=== PATIENT | male | born 1985 | race Caucasian/White ===

== ENCOUNTER 2020-01-16 14:29 | Inpatient (IN) | payer OTHER ==
[~2020-01-16] VITALS: Ht 177.8 cm; Wt 112.0 kg
[2020-01-16 15:05] LABS: BASOPHILS ABSOLUTE AUTO 0.09 K/mm3 (0.00-0.23); BASOPHILS PERCENT AUTO 1 % (0-2); EOSINOPHILS ABSOLUTE AUTO 0.06 K/mm3 (0.00-0.68); EOSINOPHILS PERCENT AUTO 1 % (0-6); Hematocrit 32.8 % (37.0-53.0); Hemoglobin 11.4 g/dL (13.5-17.5); IMMATURE GRAN ABSOLUTE AUTO 0.07 K/mm3 (0.00-0.10); IMMATURE GRAN PERCENT AUTO 1 % (0-1); LYMPHOCYTES ABSOLUTE AUTO 1.17 K/mm3 (0.84-5.20); LYMPHOCYTES PERCENT AUTO 11 % (21-46); MONOCYTES ABSOLUTE AUTO 0.85 K/mm3 (0.16-1.47); MONOCYTES PERCENT AUTO 8 % (4-13); Mean Corpuscular HGB 36.9 pg (26.0-34.0); Mean Corpuscular HGB Conc 34.8 g/dL (31.5-36.5); Mean Corpuscular Volume 106 fL (80-100); Mean Platelet Volume 9.5 fL (9.1-12.4); NEUTROPHILS ABSOLUTE AUTO 8.73 K/mm3 (1.96-9.15); NEUTROPHILS PERCENT AUTO 80 % (41-73); Platelet Count 129 K/mm3 (150-400); RDW Standard Deviation 58.1 fL (35.1-46.3); Red Blood Cell Count 3.09 M/mm3 (4.30-5.90); White Blood Cell Count 10.97 K/mm3 (4.00-11.30)
[2020-01-16 15:21] LABS: Alanine Aminotransfer (ALT/SGP 43 U/L (12-78); Albumin, Blood 2.6 g/dL (3.4-5.0); Albumin/Globulin Ratio 0.5 (0.8-1.8); Alk Phos 185 U/L (50-136); Anion Gap 7 mmol/L (6-16); Aspartate Aminotrans (AST/SGOT 233 U/L (12-37); Bilirubin, Total 7.5 mg/dL (0.1-1.0); Blood Urea Nitrogen 2 mg/dL (8-24); Bun/Creatinine Ratio 4.3 (12.0-20.0); CO2, Blood 36 mmol/L (21-32); Calcium, Blood 9.1 mg/dL (8.5-10.1); Chloride, Blood 91 mmol/L (98-108); Creatinine, Blood 0.47 mg/dL (0.60-1.20); Globulin, Blood 5.5 g/dL (2.2-4.0); Glomerular Filtration Rate >60 (60-); Glucose, Blood 128 mg/dL (70-99); Sodium, Blood 134 mmol/L (136-145); Total Protein, Blood 8.1 g/dL (6.4-8.2)
[2020-01-16 16:09] LABS: International Normalized Ratio 1.45; Prothrombin Time Results 15.2 Sec (9.7-11.5)
[2020-01-16 16:23] LABS: Source, Urine Clean Catch
[2020-01-16 16:27] LABS: Blood, Urine Neg (Neg); Glucose Qualitative, Urine Neg (Neg); Ketones, Urine 2+ (Neg); Leukocyte Esterase, Urine 1+ (Neg); Nitrite, Urine Pos (Neg); Protein, Urine 1+ (Neg); Urobilinogen, Urine 4+ (Normal)
[2020-01-16 16:33] LABS: Appearance, Urine Clear (Clear); Bilirubin, Urine 3+ (Neg); Color, Urine Amber (P-Yellow)
[2020-01-16 16:34] LABS: Red Blood Cells, Urine 0-2 /hpf (0-2)
[2020-01-16 16:35] LABS: Bacteria Few /hpf; Squamous Epithelial Cells Few /hpf (Few)
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
[2020-01-17 05:26] LABS: Alanine Aminotransfer (ALT/SGP 31 U/L (12-78); Albumin, Blood 2.2 g/dL (3.4-5.0); Albumin/Globulin Ratio 0.5 (0.8-1.8); Alk Phos 144 U/L (50-136); Anion Gap 4 mmol/L (6-16); Aspartate Aminotrans (AST/SGOT 166 U/L (12-37); Bilirubin, Total 8.3 mg/dL (0.1-1.0); Blood Urea Nitrogen 2 mg/dL (8-24); Bun/Creatinine Ratio 4.2 (12.0-20.0); CO2, Blood 33 mmol/L (21-32); Chloride, Blood 99 mmol/L (98-108); Creatinine, Blood 0.48 mg/dL (0.60-1.20); Globulin, Blood 4.7 g/dL (2.2-4.0); Glomerular Filtration Rate >60 (60-); Glucose, Blood 126 mg/dL (70-99); Magnesium, Blood 2.1 mg/dL (1.6-2.4); Potassium, Blood 3.2 mmol/L (3.5-5.5); Sodium, Blood 136 mmol/L (136-145); Total Protein, Blood 6.9 g/dL (6.4-8.2)
--- NOTE | 2020-01-17 12:18 | NUR ---
echocardiogram complete
--- NOTE | 2020-01-17 17:06 | NUR ---
SHIFT SUMMARY PATIENT DENIES PAIN, EXCEPT WHEN FEET ARE TOUCHED. PATIENT HAD MILD EPISODE OF NAUSEA AFTER TAKING VITAMINS THIS AM. DENIES NAUSEA THE REST OF SHIFT. ATE 100% OF LUNCH. CIWA'S BETWEEN 4 AND 6 THIS SHIFT. ECHO COMPLETED. VENOUS DOPPLER COMPLETED. PATIENT NAPPING MOST OF SHIFT. UP SBA TO BR. AT BEDSIDE.
[2020-01-18 04:51] LABS: Alanine Aminotransfer (ALT/SGP 26 U/L (12-78); Albumin, Blood 2.3 g/dL (3.4-5.0); Albumin/Globulin Ratio 0.5 (0.8-1.8); Alk Phos 134 U/L (50-136); Anion Gap 5 mmol/L (6-16); Aspartate Aminotrans (AST/SGOT 144 U/L (12-37); Bilirubin, Total 8.5 mg/dL (0.1-1.0); Blood Urea Nitrogen 3 mg/dL (8-24); Bun/Creatinine Ratio 5.6 (12.0-20.0); CO2, Blood 31 mmol/L (21-32); Calcium, Blood 8.5 mg/dL (8.5-10.1); Chloride, Blood 101 mmol/L (98-108); Creatinine, Blood 0.54 mg/dL (0.60-1.20); Globulin, Blood 4.7 g/dL (2.2-4.0); Glomerular Filtration Rate >60 (60-); Glucose, Blood 98 mg/dL (70-99); Potassium, Blood 3.9 mmol/L (3.5-5.5); Sodium, Blood 137 mmol/L (136-145)
--- NOTE | 2020-01-18 06:09 | NUR ---
SHIFT SUMMARY PT APPEARS RECEPTIVE THIS EVENING TO REMAINING IN HOSPITAL. CIWA SCORES 7-11 THIS EVENING. MEDICATED X 2 WITH 2 MG ATIVAN. PT'S RESPIRATIONS ELEVATED AND BECOME MORE ELEVATED WHEN FEELING ANXIOUS FROM WITHDRAWALS. REPORTS THAT PT HAS INCREASED RESPIRATIONS LIKE THIS AT HOME WELL. PT REPORTED THAT HE WAS HAVING HALLUCINATIONS THIS EVENING. STATING THAT HE COULD SEE A FRIEND STANDING IN THE CORNER AND THOUGHT THAT HIS DAUGHTER WAS SITTING NEXT TO HIM. PT'S URINE AND STOOL ORANGE. EYES ARE JAUNDICED. PT REPORT'S THAT ABD MORE DISTENDED THAN USUAL. BLE'S WITH 2-3+ EDEMA. CALLED AND WAS UPDATED. PT REMAINS TACHYCARDIC WITH HR IN THE 100'S-110'S. RESPIRATIONS IN THE 20'S. BLOOD PRESSURE STABLE. AFEBRILE. WILL CONTINUE TO MONITOR AND REPORT TO DAY RN.
[2020-01-18 08:53] LABS: Hematocrit 29.8 % (37.0-53.0); Hemoglobin 10.1 g/dL (13.5-17.5); Mean Corpuscular HGB 37.3 pg (26.0-34.0); Mean Corpuscular HGB Conc 33.9 g/dL (31.5-36.5); Mean Corpuscular Volume 110 fL (80-100); Mean Platelet Volume 9.6 fL (9.1-12.4); Platelet Count 104 K/mm3 (150-400); RDW Coefficient Variation 15.5 % (11.7-14.2); RDW Standard Deviation 61.8 fL (35.1-46.3); Red Blood Cell Count 2.71 M/mm3 (4.30-5.90); White Blood Cell Count 8.94 K/mm3 (4.00-11.30)
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
--- NOTE | 2020-01-18 20:44 | NUR ---
ASSUMED CARE. AOX3, LAYING DOWN IN BED, STATES NORMAL ACHES AND PAINS, TOLERABLE AT THIS TIME. MINOR TREMORS BUT IMPROVING. NO HEADACHE, HULLUCINATIONS. DOES FEEL ANXIOUS. DENIES ANY NAUSEA. EDEMA NOTED TO BLE, ABD DISTENDED, FIRM. TOLERATING DIET AND FLUIDS. IV FLUSHED. LUNG SOUNDS CLEAR AND HR GOOD. WILL GIVE TRAZADONE FOR SLEEP. ENCOURAGE TO CALL IF HE NEEDS ANYTHING. ALL 4 RAILS ARE UP, HE ASKED FOR US TO LEAVE THEM UP HE LIKES TO THROW HIS LEG OVER THEM. HE IS ABLE TO PUT THEM DOWN IF NEEDS TO. CALL LIGHT IN REACH.
--- NOTE | 2020-01-19 00:35 | NUR ---
GUERO AWAKE, GOT UP TO USE THE BATHROOM, DENIED ANY DISCOMFORT. ABULATION WAS STEADY, NO SIGNS OF TREMORS AT THIS TIME, DENIED ANY ANXIOUSNESS, OR OTHER SIGNS OF CIWA. WILL CONTINUE TO MONITOR.
--- NOTE | 2020-01-19 05:47 | NUR ---
SHIFT SUMMARY: AOX3, LABILE, COOPERATIVE, AND QUIT. RECEIVED TRAZADONE FOR BEDTIME. SLEPT 90% OF THE SHIFT. CONTINUOUS BIOX ON SATS REMAINED IN THE 90'S, NO OXYGEN WAS ON. STILL TACHYCARDIC IN THE 110'S ENTIRE SHIFT. DENIED ANY CHEST PAIN OR PALPITATIONS. JAUDICE SKIN. URINATING WELL. CIWA 0-3 ENTIRE SHIFT, WITH MILD TREMORS AND ANXIETY. DID NOT USE ATIVAN THIS SHIFT. GOT UP THIS AM AND TOOK SHOWER ON OWN. NO FURTHER ACUTE CHANGES TO REPORT.
[2020-01-19 08:47] LABS: Alanine Aminotransfer (ALT/SGP 25 U/L (12-78); Albumin, Blood 2.1 g/dL (3.4-5.0); Albumin/Globulin Ratio 0.5 (0.8-1.8); Alk Phos 116 U/L (50-136); Anion Gap 5 mmol/L (6-16); Aspartate Aminotrans (AST/SGOT 128 U/L (12-37); Bilirubin, Total 7.3 mg/dL (0.1-1.0); Blood Urea Nitrogen 4 mg/dL (8-24); Bun/Creatinine Ratio 8.3 (12.0-20.0); CO2, Blood 30 mmol/L (21-32); Calcium, Blood 8.5 mg/dL (8.5-10.1); Chloride, Blood 104 mmol/L (98-108); Creatinine, Blood 0.48 mg/dL (0.60-1.20); Globulin, Blood 4.6 g/dL (2.2-4.0); Glomerular Filtration Rate >60 (60-); Glucose, Blood 94 mg/dL (70-99); Potassium, Blood 3.6 mmol/L (3.5-5.5); Sodium, Blood 139 mmol/L (136-145); Total Protein, Blood 6.7 g/dL (6.4-8.2)
[2020-01-19 10:10] LABS: HBSAG SCREEN Negative (Negative); HEP A AB, IGM Negative (Negative); HEP B CORE AB, TOT Negative (Negative); HEP C VIRUS AB 0.1 (0.0-0.9)
[2020-01-19] MEDS ORDERED: NICO21TP TOP (11:23)
[2020-01-19] MEDS ORDERED: B-1100 M1 PO (11:24)
[2020-01-19] MEDS ORDERED: TRAZ50 PO (11:26)
--- NOTE | 2020-01-19 11:45 | NUR ---
PT AxOx4. COOPERATIVE WITH CARE. DR SOLORZANO DISCHARGING TO HOME. REQUESTS PT ESTABLISH CARE WITH HER PCP. NEW PT PACKET AND FOLLOW UP INFO GIVEN. PT DENIES PAIN. REPORTS MILD ANXIETY."JUST NEEDS TO GET HOME TO TAKE CARE OF SOME STUFF" LAST CIWA SCORE:2. DISCUSSED DISCHARGE INSTRUCTIONS, INCLUDING NEW MEDICATIONS. ALL QUESTIONS ANSWERED. VITAL SIGNS REVIEWED. PT ESCORTED OUT ON FOOT WITH VOLUNTEER.
== END 2020-01-19 11:46 | disposition home or self-care (01) | DRG 433 ==
LOC: ER 14:29 → MEDS 17:46 → ER 18:43 → MEDS 19:03
PROVIDERS: Emergency Medicine; Hospitalist; Physician Assistant; ADMIT Internal Medicine
DX: K70.10 Alcoholic hepatitis without ascites (principal); F10.231 Alcohol dependence with withdrawal delirium; D68.9 Coagulation defect, unspecified; E87.1 Hypo-osmolality and hyponatremia; E87.2 Acidosis; D53.9 Nutritional anemia, unspecified; E87.6 Hypokalemia; G47.00 Insomnia, unspecified; E80.6 Other disorders of bilirubin metabolism; F17.210 Nicotine dependence, cigarettes, uncomplicated
CPT/HCPCS: 36415; 71045; 76705; 80053; 81001; 82140; 82607; 82746; 83605; 83690; 83735; 83880; 84100; 84443; 85025; 85027; 85610; 85730; 86704; 86708; 86803; 87040; 87086; 87340; 93005; 93010; 93306; 93970; 94762; 96365; 96367; 96375; 99285-25; A9270; A9270-GY; J0696; J2060; J3411; J3475; J7030; J7042; Q2038

== ENCOUNTER → 2020-01-16 | Outpatient (CLI) | payer SELFPAY ==
[~2020-01-16] MED LIST: B-1100 M1 PO; NICO21TP TOP; TRAZ50 PO
[2020-01-16 13:29] LABS: BASOPHILS ABSOLUTE AUTO 0.09 K/mm3 (0.00-0.23); BASOPHILS PERCENT AUTO 1 % (0-2); EOSINOPHILS ABSOLUTE AUTO 0.08 K/mm3 (0.00-0.68); EOSINOPHILS PERCENT AUTO 1 % (0-6); Hematocrit 31.2 % (37.0-53.0); Hemoglobin 11.2 g/dL (13.5-17.5); IMMATURE GRAN ABSOLUTE AUTO 0.07 K/mm3 (0.00-0.10); IMMATURE GRAN PERCENT AUTO 1 % (0-1); LYMPHOCYTES ABSOLUTE AUTO 0.95 K/mm3 (0.84-5.20); LYMPHOCYTES PERCENT AUTO 9 % (21-46); MONOCYTES ABSOLUTE AUTO 0.74 K/mm3 (0.16-1.47); MONOCYTES PERCENT AUTO 7 % (4-13); Mean Corpuscular HGB 37.2 pg (26.0-34.0); Mean Corpuscular HGB Conc 35.9 g/dL (31.5-36.5); Mean Corpuscular Volume 104 fL (80-100); Mean Platelet Volume 9.5 fL (9.1-12.4); NEUTROPHILS ABSOLUTE AUTO 8.75 K/mm3 (1.96-9.15); NEUTROPHILS PERCENT AUTO 82 % (41-73); Platelet Count 125 K/mm3 (150-400); RDW Coefficient Variation 14.7 % (11.7-14.2); RDW Standard Deviation 55.7 fL (35.1-46.3); Red Blood Cell Count 3.01 M/mm3 (4.30-5.90); White Blood Cell Count 10.68 K/mm3 (4.00-11.30)
[2020-01-16 13:33] LABS: Alanine Aminotransfer (ALT/SGP 47 U/L (12-78); Albumin, Blood 2.6 g/dL (3.4-5.0); Albumin/Globulin Ratio 0.4 (0.8-1.8); Alk Phos 181 U/L (40-126); Anion Gap 9 mmol/L (6-16); Aspartate Aminotrans (AST/SGOT 231 U/L (12-37); Bilirubin, Direct 4.3 mg/dL (0.0-0.3); Bilirubin, Total 6.7 mg/dL (0.1-1.0); Blood Urea Nitrogen 2 mg/dL (8-24); Bun/Creatinine Ratio 3.1 (12.0-20.0); CO2, Blood 36 mmol/L (21-32); Calcium, Blood 8.9 mg/dL (8.5-10.1); Chloride, Blood 90 mmol/L (98-108); Creatinine, Blood 0.65 mg/dL (0.60-1.20); Globulin, Blood 5.8 g/dL (2.2-4.0); Glomerular Filtration Rate >60 (60-); Glucose, Blood 138 mg/dL (70-99); Potassium, Blood 2.8 mmol/L (3.5-5.5); Sodium, Blood 135 mmol/L (136-145); Total Protein, Blood 8.4 g/dL (6.4-8.2)
[2020-01-16 14:13] LABS: International Normalized Ratio 1.39; Prothrombin Time Results 14.6 Sec (9.7-11.5)
[2020-01-18 10:09] LABS: HBSAG SCREEN Negative (Negative); HEP A AB, IGM Negative (Negative); HEP B CORE AB, IGM Negative (Negative); HEP C VIRUS AB 0.1 (0.0-0.9)
== END | disposition home or self-care (01) ==
LOC: LAB SHORT 13:06 → LAB EV 13:06
PROVIDERS: Chiropractor
DX: R17 Unspecified jaundice (principal); R10.11 Right upper quadrant pain
CPT/HCPCS: 80053; 80074; 82248; 83690; 83880; 85025; 85610; 85730

== ENCOUNTER 2020-07-10 23:31 | Emergency (ER) | payer OTHER ==
[~2020-07-10] VITALS: Ht 177.8 cm; Wt 93.0 kg
[2020-07-11 00:20] LABS: BASOPHILS ABSOLUTE AUTO 0.11 K/mm3 (0.00-0.23); BASOPHILS PERCENT AUTO 1 % (0-2); EOSINOPHILS ABSOLUTE AUTO 0.27 K/mm3 (0.00-0.68); EOSINOPHILS PERCENT AUTO 3 % (0-6); Hematocrit 32.9 % (37.0-53.0); Hemoglobin 11.2 g/dL (13.5-17.5); IMMATURE GRAN ABSOLUTE AUTO 0.02 K/mm3 (0.00-0.10); IMMATURE GRAN PERCENT AUTO 0 % (0-1); LYMPHOCYTES PERCENT AUTO 17 % (21-46); MONOCYTES ABSOLUTE AUTO 0.78 K/mm3 (0.16-1.47); MONOCYTES PERCENT AUTO 9 % (4-13); Mean Corpuscular HGB 33.7 pg (26.0-34.0); Mean Corpuscular Volume 99 fL (80-100); Mean Platelet Volume 9.9 fL (9.1-12.4); NEUTROPHILS ABSOLUTE AUTO 6.14 K/mm3 (1.96-9.15); NEUTROPHILS PERCENT AUTO 70 % (41-73); Platelet Count 82 K/mm3 (150-400); RDW Coefficient Variation 13.6 % (11.7-14.2); RDW Standard Deviation 48.8 fL (35.1-46.3); Red Blood Cell Count 3.32 M/mm3 (4.30-5.90); White Blood Cell Count 8.82 K/mm3 (4.00-11.30)
[2020-07-11 00:34] LABS: International Normalized Ratio 1.83; Prothrombin Time Results 18.9 Sec (9.7-11.5)
[2020-07-11 00:37] LABS: Alanine Aminotransfer (ALT/SGP 51 U/L (12-78); Albumin, Blood 3.1 g/dL (3.4-5.0); Albumin/Globulin Ratio 0.5 (0.8-1.8); Alk Phos 136 U/L (50-136); Anion Gap 9 mmol/L (6-16); Aspartate Aminotrans (AST/SGOT 155 U/L (12-37); Bilirubin, Total 7.2 mg/dL (0.1-1.0); Blood Urea Nitrogen 6 mg/dL (8-24); Bun/Creatinine Ratio 9.3 (12.0-20.0); CO2, Blood 30 mmol/L (21-32); Calcium, Blood 9.1 mg/dL (8.5-10.1); Chloride, Blood 96 mmol/L (98-108); Creatinine, Blood 0.65 mg/dL (0.60-1.20); Ethanol (Alcohol), Blood, Med 52 mg/dL; Globulin, Blood 6.2 g/dL (2.2-4.0); Glomerular Filtration Rate >60 (60-); Glucose, Blood 129 mg/dL (70-99); Potassium, Blood 3.2 mmol/L (3.5-5.5); Sodium, Blood 135 mmol/L (136-145); Total Protein, Blood 9.3 g/dL (6.4-8.2)
[2020-07-11 00:55] LABS: Source, Urine Voided
[2020-07-11 00:58] LABS: Appearance, Urine Clear (Clear); Blood, Urine 2+ (Neg); Color, Urine Amber (P-Yellow); Glucose Qualitative, Urine Neg (Neg); Ketones, Urine 2+ (Neg); Leukocyte Esterase, Urine 1+ (Neg); Nitrite, Urine Pos (Neg); Protein, Urine 2+ (Neg); Specific Gravity, Urine 1.015 (1.003-1.022); Urobilinogen, Urine 4+ (Normal); pH, Urine 6.5 (5.0-8.0)
[2020-07-11 00:59] LABS: Bilirubin, Urine 3+ (Neg)
[2020-07-11 01:05] LABS: Bacteria Many /hpf; Hyaline Casts 0-2 /lpf (0-2); Mucus Mod (0-Heavy); Red Blood Cells, Urine 0-2 /hpf (0-2); Squamous Epithelial Cells Few /hpf (Few)
[2020-07-11 01:10] LABS: U Amphetamine Screen Not Detected; U Barbituate Screen Not Detected; U Benzodiazapine Screen Not Detected; U Buprenorphine Screen Not Detected; U Cannabinoids Screen Not Detected; U Cocaine Screen Not Detected; U Methadone Screen Not Detected; U Methamphetamine Screen Not Detected; U Opiates Screen Not Detected; U Oxycodone Screen Not Detected; U Phencyclidine Screen Not Detected; U Propoxyphene Screen Not Detected
[2020-07-11] MEDS ORDERED: Zofran4 MG PO (01:33)
[2020-07-11] MEDS ORDERED: CHLO25 PO (01:33)
[2020-07-11] MEDS ORDERED: Triamcinolone A15 GM TOP (01:33)
== END 2020-07-11 02:10 | disposition home or self-care (01) ==
LOC: ER 23:31
PROVIDERS: Emergency Medicine; Physician Assistant
DX: K70.10 Alcoholic hepatitis without ascites (principal); F10.239 Alcohol dependence with withdrawal, unspecified; R21 Rash and other nonspecific skin eruption; F17.210 Nicotine dependence, cigarettes, uncomplicated; Z79.899 Other long term (current) drug therapy
CPT/HCPCS: 80053; 81001; 82140; 85025; 85610; 85730; 87086; 99284; A9270; G0480

== ENCOUNTER 2020-12-18 17:53 | Observation (INO) | payer OTHER ==
[~2020-12-18] VITALS: Ht 177.8 cm; Wt 109.0 kg
[~2020-12-18 17:53] MED LIST changes: -FURO40 PO; -POTASSIUM CL ER PO
[2020-12-18 21:57] LABS: Magnesium, Blood 1.3 mg/dL (1.6-2.4); Phosphorus, Blood 2.4 mg/dL (2.5-4.9)
[2020-12-18 22:14] LABS: Source, Urine Clean Catch
[2020-12-18 22:20] LABS: Blood, Urine 1+ (Neg); Glucose Qualitative, Urine Neg (Neg); Ketones, Urine 2+ (Neg); Leukocyte Esterase, Urine 1+ (Neg); Nitrite, Urine Pos (Neg); Protein, Urine 1+ (Neg); Urobilinogen, Urine 4+ (Normal)
[2020-12-18 22:30] LABS: Appearance, Urine Hazy (Clear); Bilirubin, Urine 3+ (Neg); Color, Urine Amber (P-Yellow)
[2020-12-18 22:31] LABS: Bacteria Rare /hpf; Red Blood Cells, Urine 0-2 /hpf (0-2); Squamous Epithelial Cells Rare /hpf (Few); White Blood Cells, Urine 0-2 /hpf (0-5)
[2020-12-18] MEDS ORDERED: FURO40 PO (23:07)
[2020-12-18] MEDS ORDERED: POTASSIUM CL ER PO (23:07)
[2020-12-18] MEDS ORDERED: B-1100 M1 PO (23:08)
[2020-12-19 03:39] LABS: BASOPHILS PERCENT AUTO 2 % (0-2); EOSINOPHILS ABSOLUTE AUTO 0.18 K/mm3 (0.00-0.68); EOSINOPHILS PERCENT AUTO 3 % (0-6); Hemoglobin 7.3 g/dL (13.5-17.5); IMMATURE GRAN ABSOLUTE AUTO 0.07 K/mm3 (0.00-0.10); IMMATURE GRAN PERCENT AUTO 1 % (0-1); LYMPHOCYTES ABSOLUTE AUTO 1.01 K/mm3 (0.84-5.20); LYMPHOCYTES PERCENT AUTO 17 % (21-46); MONOCYTES ABSOLUTE AUTO 0.48 K/mm3 (0.16-1.47); MONOCYTES PERCENT AUTO 8 % (4-13); Mean Corpuscular HGB 37.1 pg (26.0-34.0); Mean Corpuscular HGB Conc 33.2 g/dL (31.5-36.5); Mean Corpuscular Volume 112 fL (80-100); Mean Platelet Volume 8.8 fL (9.1-12.4); NEUTROPHILS ABSOLUTE AUTO 4.16 K/mm3 (1.96-9.15); NEUTROPHILS PERCENT AUTO 69 % (41-73); Platelet Count 85 K/mm3 (150-400); RDW Coefficient Variation 15.5 % (11.7-14.2); RDW Standard Deviation 60.8 fL (35.1-46.3); Red Blood Cell Count 1.97 M/mm3 (4.30-5.90)
[2020-12-19 03:56] LABS: Alanine Aminotransfer (ALT/SGP 28 U/L (12-78); Albumin, Blood 2.5 g/dL (3.4-5.0); Albumin/Globulin Ratio 0.5 (0.8-1.8); Alk Phos 115 U/L (50-136); Anion Gap 5 mmol/L (6-16); Aspartate Aminotrans (AST/SGOT 102 U/L (12-37); Blood Urea Nitrogen 8 mg/dL (8-24); Bun/Creatinine Ratio 12.7 (12.0-20.0); CO2, Blood 30 mmol/L (21-32); Calcium, Blood 8.7 mg/dL (8.5-10.1); Chloride, Blood 98 mmol/L (98-108); Creatinine, Blood 0.63 mg/dL (0.60-1.20); Globulin, Blood 4.9 g/dL (2.2-4.0); Glomerular Filtration Rate >60 (60-); Glucose, Blood 133 mg/dL (70-99); Potassium, Blood 3.5 mmol/L (3.5-5.5); Sodium, Blood 133 mmol/L (136-145); Total Protein, Blood 7.4 g/dL (6.4-8.2)
[2020-12-19 04:04] LABS: SARS-Cov-2 (COVID-19) PCR, MMC NEGATIVE (NEGATIVE)
[2020-12-19 10:53] LABS: Hematocrit 24.3 % (37.0-53.0)
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
--- NOTE | 2020-12-19 11:56 | NUR ---
1140- IV DC'D, PRESURE DRESSING APPLIED. PT AMBULATED OUTSIDE RN SBA, UNSTEADY, GOOD STRENGTH. WENT OUTSIDE INTO ED PARKING LOT AND SMOKING A CIGARETTE. NOTIFIED GUARDS AT THE ENTERANCE OF SITUATION TO BE AWARE. PT HAD BELONGINGS, INCLUDING CELL PHONE, TENNIS SHOES AND SOCKS AND A SET OF KEYS.
== END 2020-12-19 11:43 | disposition left against medical advice (07) ==
LOC: ER 17:53 → MEDS 17:54
PROVIDERS: Emergency Medicine; Physician Assistant; ADMIT Internal Medicine
DX: K70.10 Alcoholic hepatitis without ascites (principal); F10.10 Alcohol abuse, uncomplicated; D64.9 Anemia, unspecified; D68.9 Coagulation defect, unspecified; D69.6 Thrombocytopenia, unspecified; F17.210 Nicotine dependence, cigarettes, uncomplicated; Z20.822 Contact with and (suspected) exposure to COVID-19; Z53.29 Procedure and treatment not carried out because of patient's decision for other reasons
CPT/HCPCS: 36415; 74177; 76705; 80053; 81001; 82140; 83735; 84100; 85014; 85018; 85025; 86850; 86900; 86901; 87086; 93005; 93010; 96365-59; 96367; 96375; 96376; 99285-25; G0378; J2060; J3411; J3475; J7042; J7512; Q9967; U0004

== ENCOUNTER → 2020-12-18 | Outpatient (CLI) | payer OTHER ==
[~2020-12-18] MED LIST changes: +CHLO25 PO; +FURO40 PO; +POTASSIUM CL ER PO; +Triamcinolone A15 GM TOP; +Zofran4 MG PO
[2020-12-18 17:14] LABS: BASOPHILS ABSOLUTE AUTO 0.11 K/mm3 (0.00-0.23); BASOPHILS PERCENT AUTO 2 % (0-2); EOSINOPHILS ABSOLUTE AUTO 0.13 K/mm3 (0.00-0.68); EOSINOPHILS PERCENT AUTO 2 % (0-6); Hematocrit 22.6 % (37.0-53.0); Hemoglobin 7.6 g/dL (13.5-17.5); Mean Corpuscular HGB 37.4 pg (26.0-34.0); Mean Corpuscular HGB Conc 33.6 g/dL (31.5-36.5); Mean Corpuscular Volume 111 fL (80-100); Mean Platelet Volume 8.8 fL (9.1-12.4); Platelet Count 72 K/mm3 (150-400); RDW Coefficient Variation 15.8 % (11.7-14.2); RDW Standard Deviation 61.9 fL (35.1-46.3); Red Blood Cell Count 2.03 M/mm3 (4.30-5.90); White Blood Cell Count 6.24 K/mm3 (4.00-11.30)
[2020-12-18 17:21] LABS: IMMATURE GRAN ABSOLUTE AUTO 0.07 K/mm3 (0.00-0.10); IMMATURE GRAN PERCENT AUTO 1 % (0-1); LYMPHOCYTES ABSOLUTE AUTO 0.92 K/mm3 (0.84-5.20); LYMPHOCYTES PERCENT AUTO 15 % (21-46); MONOCYTES ABSOLUTE AUTO 0.48 K/mm3 (0.16-1.47); MONOCYTES PERCENT AUTO 8 % (4-13); NEUTROPHILS ABSOLUTE AUTO 4.53 K/mm3 (1.96-9.15); NEUTROPHILS PERCENT AUTO 73 % (41-73)
[2020-12-18 17:25] LABS: Alanine Aminotransfer (ALT/SGP 27 U/L (12-78); Albumin, Blood 2.7 g/dL (3.4-5.0); Albumin/Globulin Ratio 0.5 (0.8-1.8); Alk Phos 135 U/L (40-126); Anion Gap 7 mmol/L (6-16); Aspartate Aminotrans (AST/SGOT 110 U/L (12-37); Bilirubin, Direct 5.9 mg/dL (0.0-0.3); Bilirubin, Indirect 7.1 mg/dL (0.1-0.7); Bilirubin, Total 13.1 mg/dL (0.1-1.0); Blood Urea Nitrogen 8 mg/dL (8-24); Bun/Creatinine Ratio 11.4 (12.0-20.0); CO2, Blood 30 mmol/L (21-32); Calcium, Blood 8.6 mg/dL (8.5-10.1); Chloride, Blood 97 mmol/L (98-108); Globulin, Blood 5.3 g/dL (2.2-4.0); Glomerular Filtration Rate >60 (60-); Glucose, Blood 115 mg/dL (70-99); Potassium, Blood 3.6 mmol/L (3.5-5.5); Sodium, Blood 134 mmol/L (136-145)
[2020-12-18 17:44] LABS: International Normalized Ratio 2.04; Prothrombin Time Results 21.2 Sec (9.7-11.5)
== END ==
LOC: LAB SHORT 16:57 → LAB 16:57
PROVIDERS: Physician Assistant
DX: K70.31 Alcoholic cirrhosis of liver with ascites (principal)
CPT/HCPCS: 80053; 82140; 82247; 82248; 83690; 83880; 85025; 85610

== ENCOUNTER 2021-03-29 09:13 | Day surgery (SDC) | payer OTHER ==
[~2021-03-29] VITALS: Ht 177.8 cm; Wt 105.5 kg
[~2021-03-29 09:13] MED LIST changes: +FURO40 PO; +POTASSIUM CL ER PO
[2021-03-29] MEDS ORDERED: MULVITA PO (09:43)
--- NOTE | 2021-03-29 09:45 | NUR ---
Ambulatory in Day Surgery History, Chart, Medications and Allergies reviewed before start of procedure. Lungs clear T/O to Auscultation. Patient confirms NPO status and agrees with scheduled surgery. Pre-Op teaching done. Pt verbalizes understanding. Patient States Post-Procedure ride home has been arranged.
--- NOTE | 2021-03-29 10:31 | NUR ---
03/29/21 1031 Dora Elias History, Chart, Medications and Allergies reviewed before start of procedure.MONITOR INTACT WITH CONTINUOUS PULSE OXIMETRY AND INTERMITTENT BP.O2 VIA N/C INTACT THROUGHOUT SEDATION/PROCEDURE. See Anesthesia record.
--- NOTE | 2021-03-29 12:00 | NUR ---
Patient up to Ambulate independently. Gait steady. Discharge instructions reviewed with patient. Patient verbalizes understanding. Copy given to patient to take home. Discharged via wheelchair to private car for ride home.
== END 2021-03-29 23:26 | disposition home or self-care (01) ==
LOC: ORSCMMR 09:13 → ORD 10:00 → ORSCMMR 10:00
PROVIDERS: Internal Medicine Gastroenterology
PROC: 0DB68ZX Excision of Stomach, Via Natural or Artificial Opening Endoscopic, Diagnostic (ICD-10-PCS; principal; 2021-03-29 10:00)
PROC: 0DBN8ZX Excision of Sigmoid Colon, Via Natural or Artificial Opening Endoscopic, Diagnostic (ICD-10-PCS; principal; 2021-03-29 10:00)
PROC: 0DB98ZX Excision of Duodenum, Via Natural or Artificial Opening Endoscopic, Diagnostic (ICD-10-PCS; principal; 2021-03-29 10:00)
DX: D46.4 Refractory anemia, unspecified (principal); K29.60 Other gastritis without bleeding; K21.9 Gastro-esophageal reflux disease without esophagitis; K63.5 Polyp of colon; K57.30 Diverticulosis of large intestine without perforation or abscess without bleeding; F17.210 Nicotine dependence, cigarettes, uncomplicated
CPT/HCPCS: 88305; 88342; J2250; J2704; J7120

== ENCOUNTER 2022-04-28 22:06 | Observation (INO) | payer OTHER ==
[~2022-04-28] VITALS: Ht 175.3 cm; Wt 104.3 kg
[~2022-04-28 22:06] MED LIST changes: +MULVITA PO
[2022-04-28 22:27] LABS: BASOPHILS PERCENT AUTO 2 % (0-2); EOSINOPHILS ABSOLUTE AUTO 0.17 K/mm3 (0.00-0.68); EOSINOPHILS PERCENT AUTO 3 % (0-6); Hematocrit 28.8 % (37.0-53.0); Hemoglobin 8.3 g/dL (13.5-17.5); IMMATURE GRAN ABSOLUTE AUTO 0.09 K/mm3 (0.00-0.10); IMMATURE GRAN PERCENT AUTO 1 % (0-1); LYMPHOCYTES ABSOLUTE AUTO 1.55 K/mm3 (0.84-5.20); LYMPHOCYTES PERCENT AUTO 23 % (21-46); MONOCYTES ABSOLUTE AUTO 0.61 K/mm3 (0.16-1.47); MONOCYTES PERCENT AUTO 9 % (4-13); Mean Corpuscular HGB 28.6 pg (26.0-34.0); Mean Corpuscular HGB Conc 28.8 g/dL (31.5-36.5); Mean Corpuscular Volume 99 fL (80-100); Mean Platelet Volume 10.3 fL (9.1-12.4); NEUTROPHILS ABSOLUTE AUTO 4.14 K/mm3 (1.96-9.15); NEUTROPHILS PERCENT AUTO 62 % (41-73); NRBC ABSOLUTE 0.02 K/mm3 (0.00-0.02); NRBC Auto 0.3 /100 WBC (0.0-0.2); Platelet Count 91 K/mm3 (150-400); RDW Coefficient Variation 18.2 % (11.7-14.2); RDW Standard Deviation 64.4 fL (35.1-46.3); White Blood Cell Count 6.66 K/mm3 (4.00-11.30)
--- NOTE | 2022-04-29 01:14 | NUR ---
THIS RN COVERING LUNCH FOR ANOTHER RN; WITH PT IN DISTRESS. GENIE CALL TO GABY BLISS RN IN ED; WILL CALL FOR REPORT SOON DISTRESSED PT STABILIZES OR PRIMARY RN COMES BACK FROM LUNCH.
--- NOTE | 2022-04-29 02:13 | NUR ---
PT ARRIVED TO UNIT AT 0135. TRANSFERRED. FAMILY ARRIVED. PT AT 0200 WITH FAMILY AT BEDSIDE.
--- NOTE | 2022-04-29 03:50 | NUR ---
LEVERMAN CALLED. ME OKAY TO RELEASE BODY TO ANGIE AND TO NOTIFY IRRIGATION FLUME LAYER THAT THERE IS A ME HOLD PLACED D/T PT'S YOUNG AGE.
--- NOTE | 2022-04-29 04:15 | NUR ---
PER FATHER WHO IS AN NETWORK PLANNER, STATES SON WOULD NOT WANT TO BE A DONOR AND IMMEDIATE FAMILY SUPPORTS AND HONORS HIS WISHES. DONOR LINE NOTIFIED AND THE PROCESS COMPLETED. DONOR AGENCY HAS CLOSED HIS CASE.
== END 2022-04-29 02:00 ==
LOC: ER 22:06 → ERHOLD 22:07 → MEDS 04-29 01:35
PROVIDERS: Emergency Medicine; ADMIT Internal Medicine
DX: I61.8 Other nontraumatic intracerebral hemorrhage (principal); R40.4 Transient alteration of awareness; D64.9 Anemia, unspecified; D69.6 Thrombocytopenia, unspecified; F17.210 Nicotine dependence, cigarettes, uncomplicated; G93.6 Cerebral edema
CPT/HCPCS: 36415; 70450; 82947; 85025; 86850; 86900; 86901; 96374; 96375; 99285-25; J2060; J2405